=== PATIENT | female | born 1980 | race Caucasian/White ===

== ENCOUNTER 2017-08-24 02:28 | Emergency (ER) | payer OTHER, SELFPAY ==
[2017-08-24 03:50] LABS: Bilirubin Negative (Negative); Blood, Urine Large (Negative); Clarity Slightly Cloudy (Clear); Glucose, Urine (Dipstick) Negative (Negative); Leukocyte Negative (Negative); Nitrite Negative (Negative); Protein, Urine (Dipstick) Negative (Neg-Trace)
[2017-08-24 03:51] LABS: Pregnancy Test - Urine (BHCG) Negative (Negative); Pregu Control Background? CLEAR/WHITE (CLR/WHITE); Pregu Control Bar Appear? YES (CONTROL BAR)
[2017-08-24 03:56] LABS: Bacteria/HPF None Seen HPF (None Seen); RBC/HPF GREATER THAN 50-TNTC HPF (0-3); Squamous Epithelial None Seen HPF (0-3); WBC/HPF None Seen HPF (0-3)
== END 2017-08-24 04:24 | disposition home or self-care (01) ==
LOC: BURERS 02:28
DX: R31.0 Gross hematuria (principal); R03.0 Elevated blood-pressure reading, without diagnosis of hypertension; E66.9 Obesity, unspecified
CPT/HCPCS: 51701; 81003; 81015; 81025; 87086; A4353